=== PATIENT | male | born 1995 | race African-American/Black ===

== ENCOUNTER 2019-05-31 21:24 | Emergency (ER) | payer OTHER ==
[~2019-05-31] VITALS: Ht 188 cm; Wt 70.0 kg
[2019-05-31] MEDS ORDERED: SODIUM CHLORIDE 0.9% 1,000 ML IV ONE (22:21)
[2019-05-31] MEDS ORDERED: KETOROLAC 30MG/ML VIAL IV STA (22:21)
[2019-05-31 22:42] LABS: BASOPHILS % 0.5 % (0.0-2.0); HEMATOCRIT. 40.3 % (42.0-52.0); LYMPHOCYTES % 54.3 % (20.0-50.0); MEAN CORPUSCULAR HEMOGLOBIN 31.5 pg (28.0-32.0); MEAN CORPUSCULAR VOLUME 90.9 fL (80.0-94.0); MEAN PLATELET VOLUME 8.1 fl (7.4-10.4); MONOCYTES % 5.8 % (2.0-8.0); NEUTROPHILS % 37.4 % (40.0-76.0); PLATELET 223 x1000/uL (130-400); RED BLOOD CELL COUNT 4.43 mill/uL (4.7-6.1); RED CELL DISTRIBUTION WIDTH 13.1 % (11.6-14.6)
[2019-05-31 22:49] LABS: CHLORIDE 107 mEq/L (98-107)
[2019-05-31] MEDS ORDERED: SUMATRIPTAN SUCCINATE 6MG/0.5ML VIAL SUBCUT ONE (23:30)
[2019-05-31] MEDS ORDERED: ACETAMINOPHEN WITH CODEINE 300/30MG TABLET PO ONE (23:30)
[2019-06-01 02:07] VITALS: BP 110/62
== END 2019-06-01 02:09 | disposition home or self-care (01) ==
LOC: ER 21:24
DX: R51 Headache (principal); Z90.89 Acquired absence of other organs
CPT/HCPCS: 36415; 70450; 80053; 85025; 96361; 96372; 96374; 99284; J1885; J3030; J7030